=== PATIENT | female | born 1970 | race Caucasian/White ===

== ENCOUNTER → 2017-04-05 | Outpatient (CLI) | payer OTHER ==
[~2017-04-05] MED LIST: BUSP15TA PO; IBUP1TAB7 PO; OXYC1TAB35 PO; SERO25TA PO
--- NOTE | 2017-04-05 15:46 | MG ---
cc: WALTER BOB M.D., JEFFREY M.D. Lab No: Date: 04/05/2017 Age: 46 Sex: F An outpatient EEG was obtained on this 46-year-old patient with a history of being sleep deprived. Awake and drowsy during the study. History of stroke. MEDICATIONS Seroquel, BuSpar, oxycodone, Percocet, gabapentin. DESCRIPTION The EEG shows a mixture of alpha with beta rhythms diffusely. There is some intermixed theta activity when the patient drowses. The background is reactive. Photic stimulation disclosed no significant change. Hyperventilation was unremarkable. INTERPRETATION Very mildly abnormal EEG because of some intermixed mild slowing bilaterally, questionably worse in the left temporal head region. No epileptiform features present. Clinical and imaging correlation. MD OMERO Hewitt/BT /3:30 PM /3:39 PM
== END ==
LOC: HEEG 06:27
DX: R25.1 Tremor, unspecified (principal)
CPT/HCPCS: 95819